=== PATIENT | female | born 1950 | race Caucasian/White ===

== ENCOUNTER 2018-02-28 07:33 | Emergency (ER) | payer MEDICARE, OTHER ==
[2018-02-28 07:59] VITALS: RESP 16
[2018-02-28] MEDS ORDERED: LIDOCAINE HCL 1% MPF 30 SOL ONE (09:13)
[2018-02-28 09:23] VITALS: TEMP 96.8
[2018-02-28] MEDS ORDERED: LIDOCAINE HCL 1% MDV 50 ML SOL SC ONE (09:30)
[2018-02-28] MEDS ORDERED: BACITRACIN 500 U/GM OIN TOP ONE ×2 (09:55→09:57)
[2018-02-28 13:48] VITALS: BP 179/86; PULSE 84; O2SAT 92
== END 2018-02-28 10:50 | DRG 125 ==
LOC: ED 07:33
DX: S01.112A Laceration without foreign body of left eyelid and periocular area, initial encounter (principal); Z91.81 History of falling; W05.0XXA Fall from non-moving wheelchair, initial encounter
CPT/HCPCS: 12013; 99285; A9270-GY; J2001

== ENCOUNTER 2018-06-19 15:11 | Inpatient (IN) | payer MEDICARE, OTHER ==
[2018-06-19 15:53] LABS: BASOPHILS % (AUTO) 1 % (0-3); EOSINOPHILS % (AUTO) 4 % (0-9); HEMATOCRIT 41 % (35-47); HEMOGLOBIN 12.5 gm/dl (12.0-15.5); LYMPHOCYTES % (AUTO) 23.7 % (10-50); MEAN CORPUSCULAR HEMOGLOBIN 24.7 pg (27.0-32.0); MEAN CORPUSCULAR HGB CONC 30.2 gm/dl (32.0-36.0); MEAN CORPUSCULAR VOLUME 82 fL (81-99); NEUTROPHILS % (AUTO) 62.9 % (37-80)
[2018-06-19 16:02] LABS: INR 0.93 (0.86-1.12)
[2018-06-19 16:03] LABS: LACTIC ACID 0.8 mMol/L (0.0-2.0)
[2018-06-19 16:13] LABS: ALBUMIN 2.9 gm/dl (3.4-5.0); ALKALINE PHOSPHATASE 89 IU/L (46-116); ALT 17 IU/L (14-63); AST 9 IU/L (15-37); BILIRUBIN,TOTAL 0.2 mg/dl (0.2-1.0); BLOOD UREA NITROGEN 20 mg/dl (7-18); CALCIUM 8.6 mg/dl (8.5-10.1); CARBON DIOXIDE 28.1 mEq/L (21-32); CHLORIDE 108 mMol/L (98-107); CREATININE 0.79 mg/dl (0.60-1.00); GLUCOSE 100 mg/dl (74-106); POTASSIUM 3.8 mMol/L (3.5-5.1); SODIUM 142 mMol/L (136-145); TOTAL PROTEIN 6.6 gm/dl (6.4-8.2); TROP I < 0.017 ng/ml (0.000-0.056)
[2018-06-19 16:15] LABS: ANISOCYTOSIS SLIGHT AMT; OVALOCYTES PRESENT; POIKILOCYTOSIS SLIGHT AMT
[2018-06-19 16:26] LABS: APPEARANCE,URINE Slightly Cloudy; BILIRUBIN,URINE NEGATIVE (NEGATIVE); COLOR,URINE Yellow; GLUCOSE, URINE (UA) NEGATIVE (NEGATIVE); KETONES,URINE NEGATIVE (NEGATIVE); LEUKOCYTE ESTERASE ,URINE 2+ (NEGATIVE); NITRATE,URINE POSITIVE (NEGATIVE); OCCULT BLOOD,URINE NEGATIVE (NEG-TRACE); UROBILINOGEN,URINE 0.2 (0.2-1.0 EU)
[2018-06-19] MEDS ORDERED: LEVOFLOXACIN 25 MG/ML 750 MG in SODIUM CHLORIDE 0.9% 250 ML 150 ML IV ONE (16:38)
[2018-06-19 16:39] LABS: RBC,URINE 0-2 (0-3AV/HPF); WBC,URINE 40-50 (0-5AV/HPF)
[2018-06-19 16:40] LABS: BACTERIA 2+ (< 1+); CRYSTALS NEGATIVE (0-3 AVE/HPF); EPITHELIAL CELLS 0-2 (SQUAMOUS)
[2018-06-19] MEDS ORDERED: LEVOFLOXACIN 25 MG/ML SOL IV ONE (16:41)
[2018-06-19] MEDS ORDERED: LORAZEPAM 0.5 MG TAB PO PRN (19:00)
[2018-06-19] MEDS ORDERED: OLANZAPINE 2.5 MG TAB PO PRN (19:00)
[2018-06-19] MEDS ORDERED: SODIUM CHLORIDE 0.45% 1000 ML 1,000 ML with POTASSIUM CHLORIDE 2 MEQ/ML 20 MEQ IV ONE (19:02)
[2018-06-19] MEDS: SODIUM CHLORIDE 0.9% FLUSH 10 ML SOL IV PRN ×2 (19:04→20:10)
[2018-06-19] MEDS ORDERED: POTASSIUM CHLORIDE 2 MEQ/ML SOL IV ONE (19:59)
[2018-06-19] MEDS ORDERED: PRAZOSIN HYDROCHLORIDE 2 MG CAP PO SCH (21:00)
[2018-06-19] MEDS ORDERED: QUETIAPINE FUMARATE 300 MG TAB PO SCH (21:00)
[2018-06-19] MEDS: BUSPIRONE HCL 5 MG TAB PO SCH (21:57)
[2018-06-19] MEDS: LAMOTRIGINE 25 MG TAB PO SCH (21:58)
[2018-06-19] MEDS: RIVASTIGMINE TARTRATE 3 MG PO SCH (21:58)
[2018-06-19] MEDS: PANTOPRAZOLE SODIUM 40 MG ECT PO SCH (21:59)
[2018-06-19] MEDS: GABAPENTIN 300 MG CAP PO SCH (21:59)
[2018-06-19] MEDS: ACETAMINOPHEN 500 MG 500 MG TAB PO SCH (21:59)
[2018-06-19] MEDS: LAMOTRIGINE 100 MG TAB PO SCH (22:02)
[2018-06-20 00:13] VITALS: RESP 18
[2018-06-20] MEDS: SODIUM CHLORIDE 0.9% FLUSH 10 ML SOL IV PRN (03:00)
[2018-06-20] MEDS ORDERED: QUETIAPINE FUMARATE 25 MG TAB PO SCH (09:00)
[2018-06-20] MEDS ORDERED: ESCITALOPRAM 10 MG TAB PO SCH (09:00)
[2018-06-20] MEDS ORDERED: POTASSIUM CHLORIDE 10 MEQ TER PO SCH (09:00)
[2018-06-20] MEDS ORDERED: ENOXAPARIN 40 MG SOL SC SCH (09:00)
[2018-06-20] MEDS ORDERED: AMLODIPINE 5 MG TAB PO SCH (09:00)
[2018-06-20] MEDS: ACETAMINOPHEN 500 MG 500 MG TAB PO SCH (09:08)
[2018-06-20] MEDS: BUSPIRONE HCL 5 MG TAB PO SCH (09:09)
[2018-06-20] MEDS: PANTOPRAZOLE SODIUM 40 MG ECT PO SCH (09:09)
[2018-06-20] MEDS: LAMOTRIGINE 100 MG TAB PO SCH (09:10)
[2018-06-20] MEDS: RIVASTIGMINE TARTRATE 3 MG PO SCH (09:11)
[2018-06-20] MEDS: LAMOTRIGINE 25 MG TAB PO SCH (09:12)
[2018-06-20] MEDS: GABAPENTIN 300 MG CAP PO SCH (09:13)
[2018-06-20 09:22] VITALS: BP 128/61; PULSE 80; TEMP 97.9; O2SAT 94
[2018-06-20] MEDS ORDERED: PNEUMOCOCCAL VACCINE 0.5 ML SOL IM ONE (09:57)
[2018-06-20] MEDS ORDERED: LEVOFLOXACIN 500 MG TAB PO SCH (18:00)
== END 2018-06-20 10:30 | DRG 690 ==
LOC: ED 15:11 → UNDOADMIN 18:54 → ACUTE CARE 18:54
PROVIDERS: ADMIT Family Medicine; ATTEND Family Medicine
DX: N30.00 Acute cystitis without hematuria (principal); R40.4 Transient alteration of awareness; R40.2432 Glasgow coma scale score 3-8, at arrival to emergency department; E11.9 Type 2 diabetes mellitus without complications; R29.728 NIHSS score 28
CPT/HCPCS: 36415; 70450; 71045; 80053; 81001; 82962; 84484; 85025; 85610; 87077; 87088; 87186; 90732; 96365; 96366; 99285; 99291; 99292; J1650; J1956; J3480; A9270-GY; G0008

== ENCOUNTER 2018-08-06 16:58 | Emergency (ER) | payer MEDICARE, OTHER ==
[2018-08-06 17:10] VITALS: TEMP 97.5; O2SAT 96
[2018-08-06] MEDS ORDERED: CEFTRIAXONE 1 GM PDS IM ONE (18:16)
[2018-08-06] MEDS ORDERED: LIDOCAINE HCL 1% MPF 30 SOL ONE (18:42)
[2018-08-06] MEDS ORDERED: CEFTRIAXONE 1 GM PDS ONE (18:42)
[2018-08-06 18:50] VITALS: BP 168/75; PULSE 86
[2018-08-06 19:30] VITALS: RESP 18
== END 2018-08-06 19:38 | DRG 690 ==
LOC: ED 16:58
DX: N30.00 Acute cystitis without hematuria (principal); R40.4 Transient alteration of awareness
CPT/HCPCS: 96372; 99283; J0696; J2001

== ENCOUNTER 2018-09-15 19:58 | Emergency (ER) | payer MEDICARE, OTHER ==
[2018-09-15 20:06] VITALS: RESP 20; TEMP 96.6
[2018-09-15 21:31] VITALS: BP 102/46; PULSE 71; O2SAT 89
== END 2018-09-15 21:28 | DRG 605 ==
LOC: ED 19:58
DX: S00.83XA Contusion of other part of head, initial encounter (principal)
CPT/HCPCS: 99282; 99284